=== PATIENT | female | born 1930 | race Caucasian/White ===

== ENCOUNTER 2017-08-13 09:55 | Outpatient (CLI) | payer MEDICARE | END 2017-08-13 09:56 | disposition home or self-care (01) | LOC: BICMAMMO 09:55 | PROVIDERS: ATTEND Internal Medicine Hematology & Oncology | DX: M85.80 Other specified disorders of bone density and structure, unspecified site (principal); M81.0 Age-related osteoporosis without current pathological fracture; Z85.3 Personal history of malignant neoplasm of breast | CPT/HCPCS: 77080 ==

== ENCOUNTER 2017-12-03 13:42 | Outpatient (CLI) | payer MEDICARE ==
--- NOTE | 2017-12-03 15:51 | ULT ---
BILATERAL LOWER EXTREMITY VENOUS DOPPLER ULTRASOUND: Date: 12/03/17 HISTORY: Pain and edema in the lower extremities. TECHNIQUE: Maldonado scale ultrasound with color flow and spectral Doppler imaging of the deep venous systems of the lower extremities was performed bilaterally. FINDINGS: There is good flow, compression, and augmentation noted in the common femoral, femoral, deep femoral, popliteal, posterior tibial, and greater saphenous veins on either side. There is a 3.1 x 2.1 x 0.7 cm cystic mass in the left popliteal fossa consistent with Srivastava's cyst. IMPRESSION: 1. No evidence of deep venous thrombosis in either lower extremity. 2. Left Srivastava's cyst. POS: [facility]
--- NOTE | 2017-12-03 16:45 | EKG ---
Test Reason : Blood Pressure : / mmHG Vent. Rate : 088 BPM Atrial Rate : 249 BPM P-R Int : 000 ms QRS Dur : 140 ms QT Int : 416 ms P-R-T Axes : 000 068 033 degrees QTc Int : 503 ms Atrial flutter with variable A-V block Right bundle branch block Abnormal ECG No previous ECGs available Confirmed by DR. Orlando THURMAN ([id number]) on 12/03/2017 4:44:58 PM Referred By: RYAN Confirmed By:DR. Orlando THURMAN
== END 2017-12-03 13:43 | disposition home or self-care (01) ==
LOC: EKG 13:42
PROVIDERS: ATTEND Internal Medicine Hematology & Oncology
DX: C50.812 Malignant neoplasm of overlapping sites of left female breast (principal); I48.91 Unspecified atrial fibrillation; I82.90 Acute embolism and thrombosis of unspecified vein; R60.0 Localized edema; M79.605 Pain in left leg; M79.604 Pain in right leg; M71.22 Synovial cyst of popliteal space [Baker], left knee
CPT/HCPCS: 93005; 93010; 93970

== ENCOUNTER 2018-06-30 10:12 | Outpatient (CLI) | payer MEDICARE | END 2018-06-30 10:13 | disposition home or self-care (01) | LOC: BICMAMMO 10:12 | PROVIDERS: ATTEND Internal Medicine Hematology & Oncology | DX: Z08 Encounter for follow-up examination after completed treatment for malignant neoplasm (principal); Z85.3 Personal history of malignant neoplasm of breast | CPT/HCPCS: 77065; G0279 ==

== ENCOUNTER 2019-07-06 10:11 | Outpatient (CLI) | payer MEDICARE ==
--- NOTE | 2019-07-06 11:07 | MMO ---
Right Breast MAMMO Unilat Diag DDI RT+MARIBEL. CLINICAL HISTORY: Patient is 88 years old and is seen for diagnostic exam. The patient has the following family history of breast cancer: sister, at age 75. The patient has a history of left Mastectomy at age 84. VIEWS: The views performed were: right craniocaudal with tomosynthesis; right mediolateral oblique with tomosynthesis; and right mediolateral with tomosynthesis. FILMS COMPARED: The present examination has been compared to prior imaging studies performed at [facility] on 02/20/2016 and 02/20/2017, and at [facility] on 06/30/2018. This study has been interpreted with the assistance of computer-aided detection. MAMMOGRAM FINDINGS: The breast is heterogeneously dense, which could obscure a lesion on mammography. There are stable benign appearing calcifications seen in the right breast. There are also vascular calcifications. There are no suspicious masses, suspicious calcifications, or new areas of architectural distortion. IMPRESSION: THERE IS NO MAMMOGRAPHIC EVIDENCE OF MALIGNANCY. A ROUTINE FOLLOW-UP MAMMOGRAM IN 1 YEAR IS RECOMMENDED. THE RESULTS OF THIS EXAM WERE SENT TO THE PATIENT. ACR BI-RADS Category 2 - Benign finding MAMMOGRAPHY NOTE: 1. A negative mammogram report should not delay a biopsy if a dominant of clinically suspicious mass is present. 2. Approximately 10% to 15% of breast cancers are not detected by mammography. 3. Adenosis and dense breasts may obscure an underlying neoplasm. Reported by: CHARLEE VEGA MD Electonically Signed: [id number]
== END 2019-07-06 10:12 | disposition home or self-care (01) ==
LOC: BICMAMMO 10:11
PROVIDERS: ATTEND Internal Medicine Hematology & Oncology
DX: Z08 Encounter for follow-up examination after completed treatment for malignant neoplasm (principal); Z85.3 Personal history of malignant neoplasm of breast; Z90.12 Acquired absence of left breast and nipple
CPT/HCPCS: 77065; G0279